=== PATIENT | female | born 1995 | race Caucasian/White ===

== ENCOUNTER 2018-01-26 10:09 | Day surgery (SDC) | payer OTHER ==
[2018-01-26] MEDS ORDERED: LIDOCAINE 4% SOLUTION 50 ML BTL (11:05)
[2018-01-26] MEDS ORDERED: FENTAnyl 50 MCG/ML VIAL (11:49)
[2018-01-26] MEDS ORDERED: MIDAZOLAM 1 MG/ML 2 ML INJ ×3 (11:49)
== END 2018-01-26 12:10 | disposition home or self-care (01) ==
LOC: GIL 10:09
DX: K29.50 Unspecified chronic gastritis without bleeding (principal)
CPT/HCPCS: 43239; 84703; 88305; 88312